=== PATIENT | female | born 1960 | race African-American/Black ===

== ENCOUNTER 2024-03-16 10:42 | Inpatient (IN) | payer OTHER ==
[2024-03-16 11:12] VITALS: BMI 22.6
[2024-03-16] MEDS ORDERED: hydrOXYzine PAMOATE 25 MG CAPSULE (FP) PO PRN (13:50)
[2024-03-16] MEDS ORDERED: MAGNESIUM HYDROX 2400MG/30ML ORAL SUSPENSION 30 ML CUP PO PRN (13:50)
[2024-03-16] MEDS ORDERED: IBUPROFEN 400 MG TABLET (FP) PO PRN (13:50)
[2024-03-16] MEDS ORDERED: IBUPROFEN 600 MG TABLET (FP) PO PRN (13:50)
[2024-03-16] MEDS ORDERED: guaiFENesin 600 MG TABLET.ER (FP) PO PRN (13:50)
[2024-03-16] MEDS ORDERED: BENZONATATE 200 MG CAPSULE PO PRN (13:50)
[2024-03-16] MEDS ORDERED: POLYETHYLENE GLYCOL (HEALTHYLAX) 3350 17 GM PACKET PO PRN (13:50)
[2024-03-16] MEDS ORDERED: MAG HYDROX/AL HYDROX/SIMETH 30 ML UNIT-DOSE CUP PO PRN (13:50)
[2024-03-16] MEDS ORDERED: NALOXONE HCL 0.4 MG/ML VIAL IM PRN (13:50)
[2024-03-16] MEDS ORDERED: NALOXONE (NARCAN) HCL 4 MG/0.1 ML SPRAY NS PRN (13:50)
[2024-03-16] MEDS ORDERED: BENZOCAINE/MENTHOL (CHLORASEPTIC ) LOZENGE MM PRN (13:50)
[2024-03-16] MEDS ORDERED: LOPERAMIDE HCL 2 MG CAPSULE PO PRN (13:50)
[2024-03-16] MEDS ORDERED: cloNIDine HCL 0.1 MG TABLET ONE (14:49)
[2024-03-16] MEDS: cloNIDine HCL 0.1 MG TABLET PO ONE (14:50)
[2024-03-16] MEDS: ACETAMINOPHEN 325 MG TABLET (FP) PO PRN (21:59)
[2024-03-16] MEDS: THIAMINE 100 MG TABLET PO SCH (22:00)
[2024-03-16] MEDS: MELATONIN 5 MG TABLETS PO SCH (22:03)
[2024-03-17 10:18] LABS: HEMATOCRIT 39.3 % (32.4-45.2); HEMOGLOBIN 13.3 GM/dL (10.7-15.3); MCHC 33.8 g/dl (32.0-36.0); MEAN CELL VOLUME 88.7 fl (80-96); MEAN PLT VOLUME 10.4 fl (7.5-11.1); PLATELET COUNT 145 10^3/uL (134-434); RBC 4.43 M/mm3 (3.60-5.2); RDW 13.3 % (11.6-15.6); WHITE BLOOD COUNT 2.9 K/mm3 (4.0-10.0)
[2024-03-17] MEDS: PRENATAL VITAMINS W/ FOLIC ACID TABLET (FP) PO SCH (10:25)
[2024-03-17] MEDS: CARVEDILOL 25 MG TABLET (FP) PO SCH (10:25)
[2024-03-17] MEDS: ASPIRIN 81 MG CHEWABLE TABLETS PO SCH (10:25)
[2024-03-17] MEDS: amLODIPine BESYLATE 10 MG TABLET (FP) PO SCH (10:25)
[2024-03-17] MEDS: HYDROCHLOROTHIAZIDE 25 MG TABLET (FP) PO SCH (10:25)
[2024-03-17] MEDS: NICOTINE 14 MG/24 HOURS TOPICAL PATCH TD SCH (10:27)
[2024-03-17] MEDS: ISOSORBIDE MONONITRATE 60 MG TAB.SR.24H (FP) PO SCH (10:34)
[2024-03-17] MEDS: LOSARTAN POTASSIUM 50 MG TABLET PO SCH (10:39)
[2024-03-17 11:40] LABS: CHLORIDE 105 mmol/L (98-107); POTASSIUM 3.3 mmol/L (3.5-5.1); SODIUM 140 mmol/L (136-145)
[2024-03-17 12:02] LABS: CALCIUM 9.1 mg/dL (8.5-10.1)
[2024-03-17 12:03] LABS: ALBUMIN 3.5 g/dl (3.4-5.0); ANION GAP 7 mmol/L (4-13); BLOOD UREA NITROGEN 15.7 mg/dL (7-18); CO2 28 mmol/L (21-32); GLUCOSE,RANDOM 84 mg/dL (74-106)
[2024-03-17] MEDS: LORazepam 1 MG TABLET PO ONE (12:03)
[2024-03-17 12:05] LABS: CREATININE 0.7 mg/dL (0.55-1.3); SGPT/ALT 18 U/L (13-61)
[2024-03-17 12:06] LABS: SGOT/AST 15 U/L (15-37)
[2024-03-17 12:07] LABS: BILIRUBIN,TOTAL 0.4 mg/dL (0.2-1); TOT PROT 7.6 g/dl (6.4-8.2)
[2024-03-17 12:08] LABS: ALK PHOS 61 U/L (45-117)
[2024-03-17] MEDS: cloNIDine HCL 0.1 MG TABLET PO ONE (14:20)
[2024-03-17] MEDS: POTASSIUM CHLORIDE ORAL LIQUID 20 MEQ/15 ML PO ONE (14:21)
[2024-03-18] MEDS: NICOTINE POLACRILEX 2 MG GUM BUC PRN (14:11)
[2024-03-18 16:24] LABS: POTASSIUM 3.6 mmol/L (3.5-5.1)
[2024-03-18 16:26] LABS: BLOOD UREA NITROGEN 18.7 mg/dL (7-18); CALCIUM 9.1 mg/dL (8.5-10.1)
[2024-03-18 16:29] LABS: CREATININE 0.7 mg/dL (0.55-1.3)
[2024-03-19] MEDS: BACLOFEN 10 MG TABLET (FP) PO SCH (10:44)
[2024-03-19] MEDS: LORATADINE 10 MG TABLET PO SCH (10:44)
[2024-03-19] MEDS: CLOTRIMAZOLE 1% CREAM TP SCH (10:45)
[2024-03-19 16:57] LABS: INR 1.05 (0.83-1.09); PROTHROMBIN TIME (PATIENT) 12.1 SEC (9.7-13.0)
[2024-03-19 17:49] LABS: HIV INTERPRETATION NEGATIVE (NEGATIVE)
[2024-03-20] MEDS: SERTRALINE HCL 25 MG TABLET (FP) PO SCH (09:59)
[2024-03-20] MEDS: MELATONIN 5 MG TABLETS PO SCH (21:51)
[2024-03-24] MEDS: BACLOFEN 10 MG TABLET (FP) PO SCH (21:01)
[2024-03-24] MEDS: CARBAMIDE PEROXIDE 6.5% OTIC 15 ML BOTTLE AU SCH (22:21)
[2024-03-29 17:14] VITALS: RESP 17
[2024-03-30 07:04] VITALS: TEMP 97.8
[2024-03-30 09:40] VITALS: BP 145/74; PULSE 63
== END 2024-03-30 11:44 | disposition home or self-care (01) | DRG 772 ==
LOC: YASAS 10:42 → Y3NR 17:46 → Y5N 03-17 15:48
PROVIDERS: ADMIT Allergy & Immunology; ATTEND Psychiatry & Neurology Pain Medicine
PROC: HZ42ZZZ Group Counseling for Substance Abuse Treatment, Cognitive-Behavioral (ICD-10-PCS; principal; 2024-03-16)
DX: F10.230 Alcohol dependence with withdrawal, uncomplicated (principal); F14.20 Cocaine dependence, uncomplicated; F17.210 Nicotine dependence, cigarettes, uncomplicated; F19.982 Other psychoactive substance use, unspecified with psychoactive substance-induced sleep disorder; F19.94 Other psychoactive substance use, unspecified with psychoactive substance-induced mood disorder; I10 Essential (primary) hypertension; E78.5 Hyperlipidemia, unspecified; I25.10 Atherosclerotic heart disease of native coronary artery without angina pectoris; I69.351 Hemiplegia and hemiparesis following cerebral infarction affecting right dominant side; B35.3 Tinea pedis; J30.9 Allergic rhinitis, unspecified; Z56.0 Unemployment, unspecified
CPT/HCPCS: 36415; 80048; 80053; 80305; 80307; 82140; 82652; 83735; 85027; 85610; 86780; 87389; 87811; 93005; 93010; J0475